=== PATIENT | female | born 1985 | race Caucasian/White ===

== ENCOUNTER 2017-11-17 20:24 | Emergency (ER) | payer OTHER ==
[2017-11-17 22:26] VITALS: BP 146/104
== END 2017-11-17 22:26 | disposition home or self-care (01) ==
LOC: ED 20:24
DX: S93.401A Sprain of unspecified ligament of right ankle, initial encounter (principal); J45.909 Unspecified asthma, uncomplicated; X58.XXXA Exposure to other specified factors, initial encounter; Y93.89 Activity, other specified; Y92.89 Other specified places as the place of occurrence of the external cause; Y99.8 Other external cause status
CPT/HCPCS: Q0092